=== PATIENT | female | born 1990 | race Caucasian/White ===

== ENCOUNTER 2019-03-28 01:04 | Inpatient (IN) | payer MEDICAID ==
[2019-03-28] MEDS ORDERED: Acetaminophen 325 MG Tab PO PRN (01:19)
[2019-03-28] MEDS ORDERED: Sodium Chloride 0.9% 10 ML Syringe FLUSH PRN (01:19)
[2019-03-28] MEDS ORDERED: fentaNYL 100 MCG/2 ML SDV IVPUSH PRN (01:19)
--- NOTE | 2019-03-28 01:29 | PCM.LDHP ---
L&D History of Present Illness - General Date of Service: 03/28/19 (active labor) Admit Problem/Dx: Patient Status Order with Admit Dx/Problem 03/28/19 01:19 Patient Status [ADT] Routine Admission Diagnosis/Problem Admission Diagnosis/Problem Source of Information: Patient History Limitations: Reports: No Limitations - History of Present Illness Introduction:: This 29 year old who is 38 1/7 weeks presents with contractions. Contractions started earlier today and and slowly before stronger. The past several hours contractions every 2-3 minutes and much stronger on the ride over. No leaking of fluid but did loose her mucosus plug earlier today. She had had adequate care and no problems during her . she has a history of precipitous deliveries and not making it to the hospital. labs: HIV neg GBS neg ABO A pos Rubella immune. 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: Reports: : 4 Para: 3 LMP (Approximate): (AGATHA 04/10/19) Hematologic History: Reports: None - Infectious Disease History Infectious Disease History: Reports: Chicken Pox Other Infectious Disease History: possible exposure to foot hand and mouth disease today - Past Surgical History Neurological Surgical History: Reports: None Dermatological Surgical History: Reports: None Social & Family History - Family History Family Medical History: Noncontributory - Caffeine Use Caffeine Use: Reports: Coffee, Soda Other Caffeine Use: not even once a day H&P Review of Systems - Review of Systems: Review Of Systems: See Below General: Reports: No Symptoms HEENT: Reports: No Symptoms Pulmonary: Reports: No Symptoms Cardiovascular: Reports: No Symptoms Gastrointestinal: Reports: No Symptoms Genitourinary: Reports: No Symptoms Musculoskeletal: Reports: No Symptoms Skin: Reports: No Symptoms Psychiatric: Reports: No Symptoms Neurological: Reports: No Symptoms Hematologic/Lymphatic: Reports: No Symptoms Immunologic: Reports: No Symptoms L&D Exam - Exam Exam: See Below - OB Specific Contraction Duration (sec): 45-60 Contraction Intensity: Moderate to Strong Movement: Active Heart Tones: Present Heart Tones per Min: 130 Heart Rate (FHR) Variability: Moderate (6-25 bmp) Presentation: Vertex Estimated Weight: 7 pounds - Mcfarland Score Mcfarland Score Cervix Position: Midposition Mcfarland Score Consistency: Soft Mcfarland Score Effacement: >80% Mcfarland Score Dilation: > 5 cm Mcfarland Score Infant's Station: -1 ,0 Mcfarland Score Total: 11 - Exam General: Alert, Oriented HEENT: PERRLA, Pupils Equal Neck: Supple Lungs: Normal Respiratory Effort Cardiovascular: Regular Rate, Regular Rhythm GI/Abdominal Exam: Soft, Non-Tender Rectal Exam: Normal Exam, Normal Rectal Tone Genitourinary: Cervical dilitation, Enlarged uterus, Vaginal discharge Back Exam: Normal Inspection, Full Range of Motion Extremities: Normal Inspection, No Pedal Edema Skin: Warm, Dry, Intact Neurological: Cranial Nerves Intact, Reflexes Equal Bilateral Psychiatric: Alert, Normal Affect, Normal Mood - Problem List (1) SNOMED Code(s): 11753539 ICD Code: Z34.90 - ENCNTR FOR SUPRVSN OF NORMAL , UNSP, UNSP TRIMESTER Status: Acute Current Visit: Yes Qualifiers: Weeks of gestation: 38 weeks Qualified Code(s): Z3A.38 - 38 weeks gestation of (2) Active labor at term SNOMED Code(s): 98318285 ICD Code: [id number] - Status: Acute Current Visit: Yes Problem List Initiated/Reviewed/Updated: Yes Orders Last 24hrs: Active Orders 24 hr Category Date Time Status Patient Status [ADT] Routine ADT 03/28/19 01:19 Ordered Antiembolic Devices [RC] .Routine Care 03/28/19 01:21 Ordered Communication Order [RC] ASDIRECTED Care 03/28/19 01:19 Ordered Heart Tones [RC] PER UNIT ROUTINE Care 03/28/19 01:19 Ordered Non Stress Test [RC] Click to Edit Care 03/28/19 01:19 Ordered May Shower [RC] ASDIRECTED Care 03/28/19 01:19 Ordered Notify Provider Vital Signs [RC] PRN Care 03/28/19 01:19 Ordered Notify Provider [RC] PRN Care 03/28/19 01:19 Ordered Up ad Gema [RC] ASDIRECTED Care 03/28/19 01:19 Ordered VTE/DVT Education [RC] Click to Edit Care 03/28/19 01:21 Ordered Vital Signs [RC] PER UNIT ROUTINE Care 03/28/19 01:19 Ordered Regular Diet [DIET] Diet 03/28/19 Breakfast Ordered CBC W/O DIFF,HEMOGRAM [HEME] Routine Lab 03/28/19 01:19 Ordered DRUG SCREEN, URINE [URCHEM] Routine Lab 03/28/19 01:19 Ordered UA W/MICROSCOPIC [URIN] Routine Lab 03/28/19 01:15 Ordered Acetaminophen [Tylenol] Med 03/28/19 01:19 Ordered 650 mg PO Q4H PRN Oxytocin/Normal Saline [Pitocin in NS 20 Units/1,000 ML Med 03/28/19 01:24 Ordered ] 20 unit in 1,000 ml IV ONETIME Sodium Chloride 0.9% [Saline Flush] Med 03/28/19 01:19 Ordered 10 ml FLUSH ASDIRECTED PRN fentaNYL [Sublimaze] Med 03/28/19 01:19 Ordered 100 mcg IVPUSH Q1H PRN DVT/VTE Prophylaxis Reflex [OM.PC] Routine Oth 03/28/19 01:19 Ordered Saline Lock Insert [OM.PC] Routine Oth 03/28/19 01:19 Ordered Resuscitation Status Routine Resus Stat 03/28/19 01:19 Ordered Medication Orders Acetaminophen (Tylenol) 650 mg PO Q4H PRN PRN Reason: Pain (Mild 1-3) and fever Fentanyl (Sublimaze) 100 mcg IVPUSH Q1H PRN PRN Reason: Pain (moderate 4-6) Sodium Chloride (Saline Flush) 10 ml FLUSH ASDIRECTED PRN PRN Reason: Keep Vein Open Assessment/Plan Comment:: 29 year old 38 1 in active labor Plan ancipitate a vaginal delivery tonight pain management per patient request
[2019-03-28] MEDS ORDERED: Witch Hazel Medicated Pads 100/Jar TOP ONE (02:47)
[2019-03-28] MEDS ORDERED: Lanolin 100% Cream 40 GM Tube TOP ONE (02:47)
[2019-03-28] MEDS ORDERED: Hydrocortisone 2.5% Crm 30 GM Tube TOP PRN (02:47)
[2019-03-28] MEDS ORDERED: Benzocaine 20% Top Spray 56 GM Bottle TOP PRN (02:47)
[2019-03-28] MEDS ORDERED: Ibuprofen 200 MG Tab, 24 Tab Bulk Bottle PO PRN (02:50)
[2019-03-28] MEDS ORDERED: Acetaminophen 325 MG Tab, 50 Tab Bulk Bottle PO PRN (02:50)
--- NOTE | 2019-03-28 03:03 | PCM.DEL ---
L & D Note - General Info Date of Service: 03/28/19 () Mother's Due Date: 03/28/19 - Delivery Note Labor: Spontaneous Delivery Outcome: Livebirth Delivery Method: Spontaneous Vaginal Delivery-Single Infant Delivery Mode: Spontaneous Presentation: Left Occiput Anterior (CARLOS) Nuchal Cord: None Anesthesia Type: None Amniotic Fluid Description: Clear Episiotomy Type: None Laceration: None Placenta: Intact, Spontaneous, Expressed Cord: 3 Vessels Estimated Blood Loss: 150 Resuscitation Needed: No [place]: Stimulated, Warmed, [place] Used Provider: Helena Love Score 1 min: 8 (color) Score 5 min: 9 (color) Second Stage Interventions: Reports: Second Nurse Reviewed Heart Tones, Encouragement Given, Pushing Effectively Delivery Comments (Free Text/Narrative):: This 29 year old G4 now P4 who is 38 1/7 weeks gestation delivered at 0222 in CARLOS position a viable male infant over an intact perineum. Mother arrived at 0113 and was in active labor. she quickly progress and was complete at 0220. AROM at that time for large amount clear fluid. She pushed twice and baby delivered. He was placed on mother's chest where he was dried and stimulated. He cried spontaneously. Apgars of 8,9 all for color, three vessel cord. Delayed cord clamping was done and active management of the third stage was also used. The placenta was expressed spontaneously intact. No lacerations of the perineum , vagina, rectum or cervix were found. EBL 150cc Mother and baby to post in stable condition. baby to breast with in 15 minutes of delivery. First stage 2295-1384 Second stage 1143-8548 third stage 4599-1970 weight 7-9 - General Info Date of Service: 03/28/19 (delivery) Admission Dx/Problem (Free Text): Patient Status Order with Admit Dx/Problem 03/28/19 01:19 Patient Status [ADT] Routine Admission Diagnosis/Problem Admission Diagnosis/Problem Functional Status: Reports: Pain Controlled - Review of Systems General: Reports: No Symptoms HEENT: Reports: No Symptoms Pulmonary: Reports: No Symptoms Cardiovascular: Reports: No Symptoms Gastrointestinal: Reports: No Symptoms Genitourinary: Reports: No Symptoms Musculoskeletal: Reports: No Symptoms Skin: Reports: No Symptoms Neurological: Reports: No Symptoms Psychiatric: Reports: No Symptoms - Patient Data Weight - Most Recent: 160 lb Lab Results Last 24 Hours: Laboratory Results - last 24 hr 03/28/19 03/28/19 03/28/19 Range/Units 01:15 01:19 01:19 WBC 6.8 (4.5-11.0) K/uL RBC 3.87 (3.30-5.50) M/uL Hgb 9.4 L (12.0-15.0) g/dL Hct 30.2 L (36.0-48.0) % MCV 78 L (80-98) fL MCH 24 L (27-31) pg MCHC 31 L (32-36) % Plt Count 278 (150-400) K/uL Urine Color Yellow (YELLOW) Urine Appearance Clear (CLEAR) Urine pH 7.0 (5.0-8.0) Ur Specific [place] 1.020 (1.008-1.030) Urine Protein Negative (NEGATIVE) mg/dL Urine Glucose (UA) Negative (NEGATIVE) mg/dL Urine Ketones Negative (NEGATIVE) mg/dL Urine Occult Blood Negative (NEGATIVE) Urine Nitrite Negative (NEGATIVE) Urine Bilirubin Negative (NEGATIVE) Urine Urobilinogen 0.2 (0.2-1.0) EU/dL Ur Leukocyte Esterase Negative (NEGATIVE) Urine RBC 5-10 H (0-5) Urine WBC 0-5 (0-5) Ur Epithelial Cells Few Amorphous Sediment Rare Urine Bacteria Not seen Urine Mucus Not seen Urine Opiates Screen Negative (NEGATIVE) Ur Oxycodone Screen Negative (NEGATIVE) Urine Methadone Screen Negative (NEGATIVE) Ur Propoxyphene Screen Negative (NEGATIVE) Ur Barbiturates Screen Negative (NEGATIVE) Ur Tricyclics Screen Negative (NEGATIVE) Ur Phencyclidine Scrn Negative (NEGATIVE) Ur Amphetamine Screen Negative (NEGATIVE) U Methamphetamines Scrn Negative (NEGATIVE) Urine MDMA Screen Negative (NEGATIVE) U Benzodiazepines Scrn Negative (NEGATIVE) U Cocaine Metab Screen Negative (NEGATIVE) U Marijuana (THC) Screen Negative (NEGATIVE) Med Orders - Current: Current Medications Acetaminophen (Tylenol) 650 mg PO Q4H PRN PRN Reason: Pain (Mild 1-3) and fever Acetaminophen (Tylenol Bulk Bottle) 0 mg PO Q4H PRN PRN Reason: Pain Benzocaine (Gtep-C-Eyjuqrk 20% [place]) 0 gm TOP Q4H ONE Stop: 03/28/19 02:48 Emollient Ointment (Lansinoh Hpa) 1 gm TOP ASDIRECTED ONE Stop: 03/28/19 02:48 Fentanyl (Sublimaze) 100 mcg IVPUSH Q1H PRN PRN Reason: Pain (moderate 4-6) Hydrocortisone (Proctozone-Hc 2.5% Crm) 1 gm TOP ASDIRECTED PRN PRN Reason: Itching Ibuprofen (Motrin Bulk Bottle) 600 mg PO Q6H PRN PRN Reason: Pain Sodium Chloride (Saline Flush) 10 ml FLUSH ASDIRECTED PRN PRN Reason: Keep Vein Open Witch Lady (Tucks) 1 pad TOP ASDIRECTED ONE Stop: 03/28/19 02:48 Discontinued Medications Oxytocin/Sodium Chloride (Pitocin In Ns 20 Units/1,000 Ml) 20 unit in 1,000 mls @ 999 mls/hr IV ONETIME ONE; Protocol Stop: 03/28/19 02:24 - Exam General: Alert, Oriented HEENT: Pupils Equal, Pupils Reactive Neck: Supple Lungs: Clear to Auscultation, Normal Respiratory Effort Cardiovascular: Regular Rate, Regular Rhythm GI/Abdominal Exam: Normal Bowel Sounds, Soft (Female) Exam: Enlarged Uterus, Vaginal Bleeding Back Exam: Normal Inspection, Full Range of Motion Extremities: Normal Inspection, No Pedal Edema, Normal Capillary Refill Skin: Warm, Dry, Intact Neurological: No New Focal Deficit Psy/Mental Status: Alert, Normal Affect, Normal Mood - Problem List & Annotations (1) SNOMED Code(s): 33403809 Code(s): Z34.90 - ENCNTR FOR SUPRVSN OF NORMAL , UNSP, UNSP TRIMESTER Status: Acute Current Visit: Yes Qualifiers: Weeks of gestation: 38 weeks Qualified Code(s): Z3A.38 - 38 weeks gestation of (2) Active labor at term SNOMED Code(s): 00316611 Code(s): FJC3358 - Status: Acute Current Visit: Yes - Problem List Review Problem List Initiated/Reviewed/Updated: Yes - My Orders Last 24 Hours: My Active Orders 03/28/19 01:19 Communication Order [RC] ASDIRECTED Heart Tones [RC] PER UNIT ROUTINE Non Stress Test [RC] Click to Edit May Shower [RC] ASDIRECTED Notify Provider Vital Signs [RC] PRN Notify Provider [RC] PRN Up ad Gema [RC] ASDIRECTED Vital Signs [RC] PER UNIT ROUTINE Acetaminophen [Tylenol] 650 mg PO Q4H PRN Sodium Chloride 0.9% [Saline Flush] 10 ml FLUSH ASDIRECTED PRN fentaNYL [Sublimaze] 100 mcg IVPUSH Q1H PRN DVT/VTE Prophylaxis Reflex [OM.PC] Routine Saline Lock Insert [OM.PC] Routine Resuscitation Status Routine 03/28/19 01:21 Antiembolic Devices [RC] .Routine VTE/DVT Education [RC] Click to Edit 03/28/19 02:47 Benzocaine [Mjsx-W-[place] 20% [place]] See Dose Instructions TOP Q4H ONE Hydrocortisone [Proctozone-HC 2.5% Crm] 1 gm TOP ASDIRECTED PRN Lanolin [Lansinoh HPA] 1 gm TOP ASDIRECTED ONE Witch Lady [Tucks] 1 pad TOP ASDIRECTED ONE Assess Lochia [WOMSER] Per Unit Routine Assess Uterine Involution [WOMSER] Per Unit Routine Breast Pump [WOMSER] Per Unit Routine 03/28/19 02:48 Patient Status [ADT] Routine Vital Signs [RC] PFP 03/28/19 02:49 Ice Therapy [OM.PC] Per Unit Routine Perineal Care [OM.PC] Per Unit Routine Peripheral IV Discontinue [OM.PC] Routine Sitz Bath [OM.PC] Per Unit Routine 03/28/19 02:50 Acetaminophen [Tylenol Bulk Bottle] See Dose Instructions PO Q4H PRN Ibuprofen [Motrin Bulk Bottle] 600 mg PO Q6H PRN 03/28/19 05:11 CBC WITH AUTO DIFF [HEME] AM 03/28/19 Breakfast Regular Diet [DIET] - Assessment Assessment:: 03/28/19 29 year old without complications 38 1/7 weeks Plan Routine cares support home 24-48 hours - Plan Plan:: 29 year old 38 1/7 in active labor Plan ancipitate a vaginal delivery tonight pain management per patient request
[2019-03-29 07:39] VITALS: BP 105/71; PULSE 76
--- NOTE | 2019-03-29 08:09 | PCM.PNPP ---
- General Info Date of Service: 03/29/19 Functional Status: Reports: Pain Controlled - Review of Systems General: Reports: No Symptoms HEENT: Reports: No Symptoms Pulmonary: Reports: No Symptoms Cardiovascular: Reports: No Symptoms Gastrointestinal: Reports: No Symptoms Genitourinary: Reports: No Symptoms Musculoskeletal: Reports: No Symptoms Skin: Reports: No Symptoms Neurological: Reports: No Symptoms Psychiatric: Reports: No Symptoms - General Info Date of Service: 03/29/19 - Patient Data Vital Signs - Most Recent: Last Vital Signs Temp 36.4 C 03/29/19 07:37 Pulse 76 03/29/19 07:37 Resp 18 03/29/19 07:37 BP 105/71 03/29/19 07:37 Pulse Ox 97 03/29/19 07:37 Weight - Most Recent: 72.575 kg Med Orders - Current: Current Medications Acetaminophen (Tylenol Bulk Bottle) 1 - 2 mg PO Q4H PRN PRN Reason: Pain Benzocaine (Fmpm-N-Pjobqca 20% [place]) 0 gm TOP Q4H PRN PRN Reason: perineal pain Last Admin: 03/28/19 04:43 Dose: 1 spray Fentanyl (Sublimaze) 100 mcg IVPUSH Q1H PRN PRN Reason: Pain (moderate 4-6) Hydrocortisone (Proctozone-Hc 2.5% Crm) 0 gm TOP ASDIRECTED PRN PRN Reason: Itching Ibuprofen (Motrin Bulk Bottle) 600 mg PO Q6H PRN PRN Reason: Pain Sodium Chloride (Saline Flush) 10 ml FLUSH ASDIRECTED PRN PRN Reason: Keep Vein Open Discontinued Medications Acetaminophen (Tylenol) 650 mg PO Q4H PRN PRN Reason: Pain (Mild 1-3) and fever Emollient Ointment (Lansinoh Hpa) 0 gm TOP ASDIRECTED ONE Stop: 03/28/19 02:48 Last Admin: 03/28/19 04:32 Dose: 1 tube Oxytocin/Sodium Chloride (Pitocin In Ns 20 Units/1,000 Ml) 20 unit in 1,000 mls @ 999 mls/hr IV ONETIME ONE; Protocol Stop: 03/28/19 02:24 Last Titration: 03/28/19 03:00 Dose: 125 mls/hr, 125 mls/hr Julio Narayanan (Efe) 1 pad TOP ASDIRECTED ONE Stop: 03/28/19 02:48 Last Admin: 03/28/19 04:33 Dose: 1 applic - Interaction Infant Disposition, : [place] in Room with Family Interaction: Holding Infant Feeding: Breastfed Infant; Nursed Well Support Person: - Recovery Exam Fundal Tone: Firm Fundal Level: 1 Fingerbreadths Below Umbilicus Fundal Placement: Midline Lochia Amount: Scant Lochia Color: Rubra/Red Perineum Description: Intact, Minimal Bruising/Swelling Episiotomy/Laceration: None Bladder Status: Voiding Urinary Elimination: Voided - Exam General: Alert, Oriented HEENT: Pupils Equal Neck: Supple Lungs: Clear to Auscultation, Normal Respiratory Effort Cardiovascular: Regular Rate, Regular Rhythm, No Murmurs GI/Abdominal Exam: Normal Bowel Sounds, Soft, Non-Tender, No Organomegaly, No Distention, No Abnormal Bruit, No Mass, Pelvis Stable Extremities: Normal Inspection, Normal Range of Motion, Non-Tender, No Pedal Edema, Normal Capillary Refill Skin: Warm, Dry, Intact Neurological: No New Focal Deficit Psy/Mental Status: Alert, Normal Affect, Normal Mood - Problem List Review Problem List Initiated/Reviewed/Updated: Yes - Assessment Assessment:: 03/28/19 29 year old without complications 38 1/7 weeks Plan Routine cares support home 24-48 hours 03/29/2019 Healthy Day One Hgb-9.2 Voiding and passing gas Fundus firm and bleeding decreasing Happy with delivery well Discharge home today - Plan Plan:: 29 year old 38 1/7 in active labor Plan ancipitate a vaginal delivery tonight pain management per patient request 03/29/2019 Continue routine cares Continue to encourage and support Encourage iron rich food and iron supplement Discharge home today To see Helena in six weeks for visit
== END 2019-03-29 11:31 | disposition home or self-care (01) | DRG 807 ==
LOC: JP.OBCHECK 01:04 → JP.OB 01:10 → OBSVTOIN 02:22 → JP.MS 06:00
PROVIDERS: ADMIT Nurse Practitioner Family; ATTEND Nurse Practitioner Family
PROC: 10E0XZZ Delivery of Products of Conception, External Approach (ICD-10-PCS; principal; 2019-03-28)
PROC: 10907ZC Drainage of Amniotic Fluid, Therapeutic from Products of Conception, Via Natural or Artificial Opening (ICD-10-PCS; 2019-03-28)
DX: O80 Encounter for full-term uncomplicated delivery (principal); Z37.0 Single live birth; Z3A.38 38 weeks gestation of pregnancy
CPT/HCPCS: 36415; 59409; 80305-QW; 81001; 85025; 85027; A9270-GY; J2590